=== PATIENT | female | born 1945 | race Caucasian/White ===

== ENCOUNTER 2016-06-01 14:07 | Emergency (ER) | payer OTHER ==
[~2016-06-01] VITALS: Ht 162.6 cm; Wt 58.9 kg
[~2016-06-01 14:07] MED LIST: FOLIC ACID1 MG PO; JANTOVEN4 MG PO; METHOTREXATE2.5 MG PO; NOHOMEMEDS
[2016-06-01 15:47] LABS: HEMATOCRIT 42.8 % (36.0-46.0); MCH 28.8 PG (29.0-34.0); MCHC 32.2 G/DL (30.0-36.0); MCV 89.4 FL (83-99); MEAN PLAT.VOLUME 9.1 uM^3 (9.5-12.4); PLATELET COUNT 258 K/uL (156-360); RBC DIS.WIDTH-CV 13.9 % (11.8-14.6); RBC DIS.WIDTH-SD 45.1 % (39-53); RED BLOOD COUNT 4.79 M/uL (3.80-5.20); WHITE BLOOD COUNT 9.4 K/uL (4.1-10.2)
[2016-06-01 15:59] LABS: CHLORIDE 104 mEq/L (99-109); POTASSIUM 3.6 mEq/L (3.7-5.4); SODIUM 141 mEq/L (136-147)
[2016-06-01 16:00] LABS: INTER. NORMALIZED RATIO 3.7; PROTHROMBIN TIME 39.6 (9.2-11.2); PTT 39.2 (25-32)
[2016-06-01 16:01] LABS: GLUCOSE 92 mg/dL (70-99)
[2016-06-01 16:02] LABS: ANION GAP 12 MEQ/L (2-14)
[2016-06-01 16:03] LABS: TOTAL BILIRUBIN 0.4 mg/dL (0.0-1.0)
[2016-06-01 16:04] LABS: ALKALINE PHOSPHATASE 71 IU/L (3-129)
[2016-06-01 16:05] LABS: GFR ESTIMATE (CALCULATED) > 59 mL/min/
[2016-06-01 16:06] LABS: UREA NITROGEN (BUN) 15 mg/dL (9-23)
[2016-06-01 16:10] LABS: TROP-I INTERPRETATION NEGATIVE; TROPONIN-I < 0.01 ng/mL (0.0-0.30)
[2016-06-01 17:03] VITALS: BP 106/90
== END 2016-06-01 17:03 | disposition home or self-care (01) ==
LOC: EME 14:07
PROVIDERS: Nurse Practitioner Family
DX: M25.462 Effusion, left knee (principal); M25.562 Pain in left knee; R07.89 Other chest pain; Z79.01 Long term (current) use of anticoagulants; M79.662 Pain in left lower leg; Z86.711 Personal history of pulmonary embolism; Z86.718 Personal history of other venous thrombosis and embolism; Z82.49 Family history of ischemic heart disease and other diseases of the circulatory system
CPT/HCPCS: 71020; 80053; 84484; 85027; 85610; 85730; 93005; 93971; 99281; 99283